=== PATIENT | female | born 1995 | race Asian ===

== ENCOUNTER 2022-06-10 00:50 | Observation (INO) | payer OTHER ==
[~2022-06-10] VITALS: Ht 170.2 cm; Wt 91.2 kg
== END 2022-06-10 02:00 | disposition home or self-care (01) ==
LOC: SPU 00:50
PROVIDERS: ADMIT Obstetrics & Gynecology; ATTEND Obstetrics & Gynecology
DX: O26.893 Other specified pregnancy related conditions, third trimester (principal); R10.30 Lower abdominal pain, unspecified; R11.0 Nausea; Z3A.36 36 weeks gestation of pregnancy
CPT/HCPCS: G0378; G0379